=== PATIENT | female | born 1960 | race Caucasian/White ===

== ENCOUNTER 2017-12-20 15:07 | Emergency (ER) | payer OTHER ==
[2017-12-20 15:07] VITALS: BMI 10.8
[2017-12-20 16:03] VITALS: TEMP 98
[2017-12-20] MEDS ORDERED: Oxycodone/Acetaminophen 5/325 mg Tab PO STA (16:24)
--- NOTE | 2017-12-20 16:32 | C.PDOC ---
History Of Present Illness 57yo female, PMHx includes herniated disc, presents to the emergency department with complaints of low back pain x1 week, that is radiating down her leg. Patient denies weakness/incontinence. Patient took Tylenol/codeine with no relief. Time Seen by Provider: 12/20/17 16:10 Chief Complaint (Nursing): Back Pain History Per: Patient History/Exam Limitations: no limitations Past Medical History Reviewed: Historical Data, Nursing Documentation, Vital Signs Vital Signs: Last Vital Signs Temp 98.0 F 12/20/17 15:59 Pulse 61 12/20/17 18:08 Resp 21 12/20/17 18:08 BP 121/73 12/20/17 18:08 Pulse Ox 98 12/20/17 18:08 - Medical History PMH: Anxiety, Arthritis, Asthma, Back Problems, Bipolar Disorder, COPD, Depression, Hepatitis (Hep A and B), HTN, Migraine, Seizures Surgical History: Cholecystectomy - [facility] Procedures INDIVID PSYCHOTHERAP NEC (01/09/14) INJECT/INFUSE NEC (10/30/14) NEBULIZER THERAPY (10/30/14) OTHER GROUP THERAPY (01/09/14) PSYCHIAT DRUG THERAP NEC (01/20/14) VACCINATION NEC (05/31/14) Family History: States: No Known Family Hx - Social History Hx Tobacco Use: Yes Hx Alcohol Use: No (as per pt) Hx Substance Use: No (as per pt) - Immunization History Hx Tetanus Toxoid Vaccination: Yes Hx Influenza Vaccination: Yes Hx Pneumococcal Vaccination: Yes Review Of Systems Musculoskeletal: Positive for: Back Pain, Leg Pain Neurological: Negative for: Weakness, Numbness Physical Exam - Physical Exam Appears: Non-toxic, No Acute Distress Skin: Normal Color, Warm, Dry, No Rash Head: Normacephalic Eye(s): bilateral: PERRL Nose: Normal Oral Mucosa: Moist Lips: Normal Appearing Neck: Normal ROM Gastrointestinal/Abdominal: Normal Exam, Bowel Sounds, Soft Back: Paraspinal Tenderness (lumbat), Other (no midline tenderness, (+) straight leg positive at 30 degrees, no swelling, no erythema, (+) pulses equal bilateral at dp/pt ) Extremity: Normal ROM, No Deformity, No Swelling Neurological/Psych: Oriented x3, Normal Speech ED Course And Treatment O2 Sat by Pulse Oximetry: 97 (RA) Pulse Ox Interpretation: Normal Medical Decision Making Medical Decision Making: Impression: Sciatica Disposition Counseled Patient/Family Regarding: Studies Performed, Diagnosis, Need For Followup, Rx Given - Disposition Referrals: Cierra Ortega [Staff Provider] - Disposition: HOME/ ROUTINE Disposition Time: 17:42 Condition: STABLE Additional Instructions: follow up with your doctor in 2 days call to make an appointment take medications as needed for pain return to ER if symptoms worsens or progress no heavy lifting call pain management for follow up Prescriptions: Gabapentin 300 mg PO BID #30 capsule Lidocaine 5% [Lidoderm] 1 ea TD DAILY PRN #15 patch PRN Reason: Pain, Moderate (4-7) Naproxen [Naprosyn] 500 mg PO BID PRN #16 tab PRN Reason: Pain, Moderate (4-7) predniSONE [predniSONE Tab] 50 mg PO DAILY #4 tab Instructions: Sciatica Forms: [facility] (Hebrew), General Discharge Instructions - Clinical Impression Clinical Impression: Sciatica - Scribe Statement The provider has reviewed the documentation as recorded by the Scribe (Familia Rose) All medical record entries made by the Scribe were at my direction and personally dictated by me. I have reviewed the chart and agree that the record accurately reflects my personal performance of the history, physical exam, medical decision making, and the department course for this patient. I have also personally directed, reviewed, and agree with the discharge instructions and disposition.
[2017-12-20] MEDS ORDERED: Oxycodone/Acetaminophen 5/325 mg Tab ONE (16:38)
--- NOTE | 2017-12-20 17:22 | RAD ---
PROCEDURE: Lumbar spine dated 12/20/2017 HISTORY: Back pain COMPARISON: No prior study available for comparison FINDINGS: BONES: No acute compression fractures no retropulsed fragments. Vertebral bodies exhibit relatively normal stature. Vertebral bodies and facets normally aligned. DISC SPACES: Multilevel degenerative spondylosis. Changes (which most notably affect the L5-S1 level) include varying degrees of disc space narrowing, endplate eburnation with anterolateral as well as smaller posterior osteophyte formation. Facets are hypertrophic at the L5-S1 through the L1-L2 levels in somewhat decreasing order of severity. . OTHER FINDINGS: Metallic clips quadrant of the abdomen consistent with prior cholecystectomy. IMPRESSION: No acute fractures. Multilevel degenerative spondylosis most notably affecting the L5-S1 level.
[2017-12-20 18:09] VITALS: BP 121/73; PULSE 61; RESP 21
[2017-12-21 13:36] VITALS: O2SAT 97
== END 2017-12-20 18:15 | disposition home or self-care (01) ==
LOC: C.ER 15:07
DX: M54.30 Sciatica, unspecified side (principal)

== ENCOUNTER 2018-02-03 07:16 | Day surgery (SDC) | payer OTHER ==
[2018-02-03 08:00] VITALS: BMI 24.1
[2018-02-03] MEDS ORDERED: Propofol 10 mg/ml Inj (20 ML) ONE (08:44)
--- NOTE | 2018-02-03 08:44 | CP.SDSHP ---
Same Day Surgery H & P - History Proposed Procedure: EGD Pre-Op Diagnosis: SEE NOTES - Previous Medical/Surgical History Cardiac: Hypertension Pulmonary: Asthma Misc: Other Pain: 4.Moderate Pain - Allergies Allergies: Allergies No Known Allergies Allergy (Verified 02/03/18 07:51) - Physical Exam General Appearance: N Vital Signs: Vital Signs 02/03/18 07:30 Temperature 97.0 F L Pulse Rate 65 Respiratory 19 Rate Blood Pressure 129/70 O2 Sat by Pulse 97 Oximetry Mental Status: Alert & Oriented x3 Neuro: WNL Heart: Other Lungs: Other GI: WNL - {Optional Preform as Required} Breast: WNL Abdomen: Other Rectal: Other Integument: WNL : WNL Ortho: Other ENT: WNL - Impression Pt. Evaluated Today:Candidate for Anesthesia & Procedure: Yes - Date & Time Time: 08:44 Short Stay Discharge - Short Stay Discharge Admitting Diagnosis/Reason for Visit: DYSPEPSIA Disposition: HOME/ ROUTINE
[2018-02-03] MEDS ORDERED: Lactated Ringer's 1,000 ML IV ONE (08:45)
[2018-02-03] MEDS ORDERED: Belladonna-Phenobarbital PO STA (08:47)
[2018-02-03 09:09] VITALS: TEMP 98.6
[2018-02-03 09:37] VITALS: RESP 16; O2SAT 99
[2018-02-03 10:42] VITALS: BP 121/76; PULSE 70
== END 2018-02-03 10:40 | disposition home or self-care (01) ==
LOC: C.ENDO 07:16
PROVIDERS: ATTEND Specialist
DX: K21.0 Gastro-esophageal reflux disease with esophagitis (principal); K44.9 Diaphragmatic hernia without obstruction or gangrene; I10 Essential (primary) hypertension; J44.9 Chronic obstructive pulmonary disease, unspecified; Z72.0 Tobacco use; Z98.890 Other specified postprocedural states; Z90.49 Acquired absence of other specified parts of digestive tract; Z79.2 Long term (current) use of antibiotics; Z79.899 Other long term (current) drug therapy
CPT/HCPCS: 43235; J2001; J2405; J2704; J2765; J7120

== ENCOUNTER 2018-02-06 00:25 | Emergency (ER) | payer OTHER ==
[2018-02-06 00:26] VITALS: BMI 24.1
[2018-02-06 00:37] VITALS: RESP 20; O2SAT 99
--- NOTE | 2018-02-06 01:23 | C.PDOC ---
History Of Present Illness 57 year old male with a Hx of schizophrenia presents to the ER under police custody for psychiatric clearance for incarceration. Denies physical complaints at this time. Chief Complaint (Nursing): Psychiatric Evaluation History Per: Patient, Other (Police) History/Exam Limitations: no limitations Onset/Duration Of Symptoms: Hrs Current Symptoms Are (Timing): Still Present Suicide/Self Injury Attempted (Context): None Modifying Factor(s): None Associated Symptoms: denies: Depression, Suicidal Thoughts Involuntary Hold By: None Recent travel outside of the [place]: No Past Medical History Reviewed: Historical Data, Nursing Documentation, Vital Signs Vital Signs: Last Vital Signs Temp 98.6 F 02/06/18 00:33 Pulse 53 L 02/06/18 00:33 Resp 20 02/06/18 00:33 BP 154/86 H 02/06/18 00:33 Pulse Ox 99 02/06/18 01:28 - Medical History PMH: Anxiety, Arthritis, Asthma, Back Problems, Bipolar Disorder, Bronchitis, Colonic Polyps, COPD, Depression, Diverticulitis, Fractures, Gastritis, Hepatitis (Hep A and B), HTN, Migraine, Pneumonia, Chronic Kidney Disease, Seizures Surgical History: Cholecystectomy, Endoscopy - [facility] Procedures INDIVID PSYCHOTHERAP NEC (01/09/14) INJECT/INFUSE NEC (10/30/14) NEBULIZER THERAPY (10/30/14) OTHER GROUP THERAPY (01/09/14) PSYCHIAT DRUG THERAP NEC (01/20/14) VACCINATION NEC (05/31/14) Family History: States: Unknown Family Hx - Social History Hx Tobacco Use: Yes Hx Alcohol Use: No (as per pt) Hx Substance Use: Yes (as per pt) - Immunization History Hx Tetanus Toxoid Vaccination: Yes Hx Influenza Vaccination: Yes Hx Pneumococcal Vaccination: Yes Review Of Systems Constitutional: Negative for: Fever, Chills Cardiovascular: Negative for: Chest Pain, Palpitations Respiratory: Negative for: Cough, Shortness of Breath Gastrointestinal: Negative for: Nausea, Vomiting, Abdominal Pain Neurological: Negative for: Headache Physical Exam - Physical Exam Appears: Non-toxic Skin: Normal Color, Warm, Dry Head: Atraumatic, Normacephalic Eye(s): bilateral: Normal Inspection Oral Mucosa: Moist Chest: Symmetrical, No Tenderness Cardiovascular: Rhythm Regular Respiratory: Normal Breath Sounds, No Rales, No Rhonchi, No Wheezing Gastrointestinal/Abdominal: Soft, No Tenderness Neurological/Psych: Oriented x3, Normal Speech ED Course And Treatment O2 Sat by Pulse Oximetry: 99 (Room air) Pulse Ox Interpretation: Normal Medical Decision Making Medical Decision Making: Patient evaluated by JESSICA Maldonado at bedside. Case discussed with DR Pelayo. Patient is cleared psych dx bipolar disorder by history. Patient is cleared for incarceration. Disposition - Disposition Referrals: Cierra Ortega [Primary Care Provider] - Disposition: RELEASED IN POLICE CUSTODY Disposition Time: 02:27 Condition: STABLE Additional Instructions: Patient evaluated in ED and is psychiatrically cleared for incarceration Instructions: Bipolar Disorder (DC) Forms: [employer] (Bermudian) - POA Present On Arrival: None - Clinical Impression Clinical Impression: Bipolar disorder - PA / [employer] / Resident Statement MD/DO has reviewed & agrees with the documentation as recorded. - Scribe Statement The provider has reviewed the documentation as recorded by the Scribe Vasiliy Tovar All medical record entries made by the Scribe were at my direction and personally dictated by me. I have reviewed the chart and agree that the record accurately reflects my personal performance of the history, physical exam, medical decision making, and the department course for this patient. I have also personally directed, reviewed, and agree with the discharge instructions and disposition.
[2018-02-06 02:33] VITALS: BP 123/74; PULSE 75; TEMP 98.2
== END 2018-02-06 02:33 ==
LOC: C.ER 00:25 → SUPCPDRO 00:25 → C.ER 02:33
DX: F31.9 Bipolar disorder, unspecified (principal)

== ENCOUNTER 2018-11-24 13:03 | Emergency (ER) | payer OTHER ==
[2018-11-24 13:04] VITALS: BMI 24.1
[2018-11-24 13:45] VITALS: BP 154/98; PULSE 70; RESP 18; TEMP 97.8; O2SAT 98
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
== END 2018-11-24 14:52 | disposition home or self-care (01) ==
LOC: C.ER 13:03
DX: S13.4XXA Sprain of ligaments of cervical spine, initial encounter (principal); S33.5XXA Sprain of ligaments of lumbar spine, initial encounter; V49.50XA Passenger injured in collision with unspecified motor vehicles in traffic accident, initial encounter; Y92.410 Unspecified street and highway as the place of occurrence of the external cause
CPT/HCPCS: 96372; 99285; J1885